=== PATIENT | male | born 1955 | race Caucasian/White ===

== ENCOUNTER → 2019-10-07 | Outpatient (CLI) | payer BC ==
[~2019-10-07] MED LIST: ACYC200 PO; AMLO5 PO; ANDROGEL75 GM TD; ASPI81EC PO; ATOR10 PO; ATOR20 PO; Aspir 8181 MG PO; Cardura4 MG PO; Fosinopril Sodi20 MG PO; METF500 PO; Nitrostat0.4 MG; PARO20 PO; [UNRECOGNIZED DRUG - OTHER]
[2019-10-12 13:28] LABS: Stool Occult Bld Immuno 1 Negative (NEGATIVE); Stool Occult Bld Immuno 2 Negative (NEGATIVE)
== END | disposition home or self-care (01) ==
LOC: LAB SHORT 09:00 → LAB 09:00 → LAB FUT 09-19 15:50
PROVIDERS: Internal Medicine Gastroenterology
DX: Z12.11 Encounter for screening for malignant neoplasm of colon (principal)
CPT/HCPCS: G0328

== ENCOUNTER 2020-09-15 09:36 | Day surgery (SDC) | payer BC ==
[~2020-09-15] VITALS: Ht 193 cm; Wt 105.5 kg
[~2020-09-15 09:36] MED LIST changes: +CALCIUM CIT 311 EACH PO; +LISI20 PO
== END 2020-09-15 11:31 | disposition home or self-care (01) ==
LOC: ORSCSDS 09:36
PROVIDERS: Internal Medicine Gastroenterology
PROC: 0DBN8ZX Excision of Sigmoid Colon, Via Natural or Artificial Opening Endoscopic, Diagnostic (ICD-10-PCS; principal; 2020-09-15 10:45)
DX: K62.5 Hemorrhage of anus and rectum (principal); K57.30 Diverticulosis of large intestine without perforation or abscess without bleeding; K63.5 Polyp of colon; R19.4 Change in bowel habit; I10 Essential (primary) hypertension; E16.2 Hypoglycemia, unspecified; Z79.82 Long term (current) use of aspirin; Z79.84 Long term (current) use of oral hypoglycemic drugs; Z79.899 Other long term (current) drug therapy
CPT/HCPCS: 82947; 88305; J2704; J7120